=== PATIENT | female | born 1960 | race Caucasian/White ===

== ENCOUNTER 2017-02-20 16:57 | Emergency (ER) | payer SELFPAY ==
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
[2017-02-20 21:07] VITALS: BP 138/87
== END 2017-02-20 21:06 | disposition home or self-care (01) ==
LOC: ED 16:57
DX: S09.90XA Unspecified injury of head, initial encounter (principal); M54.2 Cervicalgia; V49.9XXA Car occupant (driver) (passenger) injured in unspecified traffic accident, initial encounter; Y93.9 Activity, unspecified; Y92.9 Unspecified place or not applicable
CPT/HCPCS: 70450; 72125; 99282